=== PATIENT | female | born 1990 ===

== ENCOUNTER → 2018-05-22 21:07 | Outpatient (REF) | payer OTHER, MEDICAID, SELFPAY ==
[2018-05-22 21:20] LABS: HEMOLYSIS 33 (0-50)
[2018-05-22 21:24] LABS: Add Manual Diff / Slide Review NO; Basophils Percent Auto 0.1 % (0-2); Eosinophils Percent Auto 3.5 % (2-4); Hemoglobin 13.8 g/dL (12.0-16.0); Lymphocytes Percent Auto 20.2 % (25-40); Mean Corpuscular HGB Conc 33.6 % (30-36); Mean Corpuscular Hemoglobin 30.6 PG (26-34); Monocytes Percent Auto 6.4 % (3-14); Neutrophils Absolute Auto 3900 /uL (3000-5900); Neutrophils Percent Auto 69.8 % (50-75); Platelet Count 206 X10^3/uL (150-400); Red Blood Cell Count 4.51 X10^6/uL (4.0-5.2); Red Cell Distribution Width 12.7 % (11.6-14.8); White Blood Cell Count 5.6 X10^3/uL (4.5-11.0)
[2018-05-22 21:26] LABS: Alanine Aminotransferase 23 IU/L (9-52); Albumin 4.8 g/dL (3.5-5.0); Albumin Globulin Ratio 1.5 (1.0-2.8); Alkaline Phosphatase 55 U/L (38-126); Aspartate Aminotransferase 69 IU/L (14-36); BUN Creatinine Ratio 18.6 (6-22); Bilirubin Total 0.5 mg/dL (0.2-1.3); Blood Urea Nitrogen 13 mg/dL (7-17); Calcium 9.6 mg/dL (8.4-10.2); Carbon Dioxide 30 mmol/L (22-32); Chloride 102 mmol/L (98-107); Creatine Kinase 37 U/L (30-135); Estimated Glomerular Filt Rate > 60.0 mL/min (>60); Globulin 3.3 g/dL (1.7-4.1); Glucose 54 mg/dL (70-100); Magnesium 2.1 mg/dL (1.6-2.3); Sodium 143 mmol/L (137-145); Total Protein 8.1 g/dL (6.3-8.2)
[2018-05-22 21:27] LABS: Iron 133 ug/dL (37-170)
[2018-05-26 13:44] LABS: Ceruloplasmin 22 mg/dL (18-53)
[2018-05-26 13:56] LABS: C.albicans IgA 1.7; C.albicans IgG 0.9; C.albicans IgM 0.6 (<1.0)
== END ==
LOC: LAB 21:07
PROVIDERS: Visit Provider Naturopath
DX: F34.1 Dysthymic disorder (principal); R19.5 Other fecal abnormalities; N94.3 Premenstrual tension syndrome; E73.9 Lactose intolerance, unspecified
CPT/HCPCS: 36415; 80053; 82390; 82550; 82746; 83088; 83540; 83735; 85025; 86628